=== PATIENT | female | born 2000 | race Caucasian/White ===

== ENCOUNTER 2020-09-17 14:30 | Emergency (ER) | payer OTHER ==
[~2020-09-17] VITALS: Ht 157.5 cm; Wt 90.3 kg
[2020-09-17 14:30] VITALS: BP_SYST 153
[2020-09-17] MEDS ORDERED: ACETAMINOPHEN 325 MG TABLET PO ONE (15:15)
[2020-09-17] MEDS ORDERED: IBUPROFEN 600 MG TABLET PO ONE (15:15)
[2020-09-17 15:48] VITALS: BP_SYST 125
== END 2020-09-17 15:50 | disposition home or self-care (01) ==
LOC: SED 14:30
DX: R07.89 Other chest pain (principal); V49.49XA Driver injured in collision with other motor vehicles in traffic accident, initial encounter; Y93.89 Activity, other specified; Y92.413 State road as the place of occurrence of the external cause; Y99.8 Other external cause status
CPT/HCPCS: 71045; 81025; 99283